=== PATIENT | male | born 1965 | race Caucasian/White ===

== ENCOUNTER 2020-02-02 06:06 | Emergency (ER) | payer OTHER ==
[~2020-02-02] VITALS: Ht 190.5 cm; Wt 99.8 kg
[2020-02-02 06:42] LABS: URINE BILIRUBIN NEGATIVE (Negative); URINE BLOOD 3+ (Negative); URINE CLARITY CLEAR; URINE COLOR YELLOW; URINE GLUCOSE-RANDOM NEGATIVE (Negative); URINE KETONES NEGATIVE (Negative); URINE LEUKOCYTES-REFLEX NEGATIVE (Negative); URINE NITRITE-REFLEX NEGATIVE (Negative); URINE PROTEIN 1+ (Negative); URINE SPECIFIC GRAVITY >= 1.030 (1.005-1.030); URINE UROBILINOGEN 0.2 E.U./dl (0.2-1.0)
[2020-02-02 06:52] LABS: AMORPHOUS URATES Many /LPF (None Seen); BACTERIA-REFLEX 1-9 Few /HPF (None Seen); CASTS None Seen /LPF (None Seen); MUCUS None Seen strn/LPF (None Seen); SQUAMOUS 0-3 Few /LPF (0-3); URINE RBC 3-10 Few /HPF (0-2); URINE WBC-REFLEX 0-5 Rare /HPF (0-5)
[2020-02-02 06:57] LABS: ABSOLUTE MONOCYTES 0.7 thou/uL (0.0-1.2); ABSOLUTE NEUTROPHILS 9.3 thou/uL (1.6-8.1); BASOPHILS 0.3 %; EOSINOPHILS 0.2 %; HEMATOCRIT 44.8 % (42.0-52.0); HEMOGLOBIN 15.3 gm/dL (14.0-18.0); LYMPHOCYTES 9.2 %; MCH 30.9 pg (26.0-34.0); MCHC 34.3 g/dL (28.0-37.0); MCV 90.1 fL (80.0-100.0); MONOCYTES 6.1 %; NUCLEATED RBCS 0 /100WBC; PLATELET COUNT* 241 thou/uL (150-400); POLYS 84.2 %; RBC 4.97 mil/uL (4.50-6.00); RDW-CV 13.8 % (10.5-14.5); WBC 11.1 thou/uL (4.0-11.0)
[2020-02-02 07:06] LABS: CALCIUM 9.2 mg/dL (8.5-10.1); CREATININE 1.7 mg/dL (0.6-1.3); POTASSIUM 3.7 mmol/L (3.5-5.1)
[2020-02-02 07:10] LABS: ALBUMIN 4.3 g/dL (3.4-5.0); TOTAL BILIRUBIN 0.5 mg/dL (<0.1-1.0); TOTAL PROTEIN 7.6 g/dL (6.4-8.2)
[2020-02-02] MEDS ORDERED: ZOFRAN ODT4 MG PO (09:57)
[2020-02-02] MEDS ORDERED: HYDROCODON-ACE1 EAC7 PO (09:57)
[2020-02-02] MEDS ORDERED: TORADOL 10 MG T10 MG PO (09:57)
[2020-02-02] MEDS ORDERED: FLOMAX0.4 MG PO (10:15)
[2020-02-02 10:16] VITALS: BP 133/88
--- NOTE | 2020-02-02 10:35 | EKG ---
[place] [address] ELECTROCARDIOGRAM REPORT Name: HALI RIVERA JR Room: [facility]#: [id number] Admission: 02/02/20 Attend Phys: Discharge: 02/02/20 Date of : 69 Date of Service: 02/02/20 0643 Report #: [id number] THIS REPORT FOR: //name// [facility] ED Test Date: 2020-02-02 Test Time: 06:43:29 Pat Name: HALI RIVERA Department: Room: Gender: [employer]: : 1965 Requested By: Naif Marin Order Number: [id number] MD: Rob Renee Measurements Intervals [place] Rate: 52 P: 15 WA: 180 QRS: 1 QRSD: 95 T: 12 QT: 469 QTc: 437 Interpretive Statements Sinus bradycardia RSR' in V1 or V2, probably normal variant Left ventricular hypertrophy Borderline T abnormalities, anterior leads No previous ECG available for comparison Electronically Signed On 02-02-2020 10:34:53 CDT by Rob Renee [email or web address] <ELECTRONICALLY SIGNED> By: Rob Renee MD, [facility] 02/02/20 1034 0643 0643 Rob Renee MD, [facility] /EPI
== END 2020-02-02 10:20 | disposition home or self-care (01) ==
LOC: M.ERS 06:06
PROVIDERS: Emergency Medicine Emergency Medical Services
DX: N20.0 Calculus of kidney (principal); N28.1 Cyst of kidney, acquired; N23 Unspecified renal colic; R11.2 Nausea with vomiting, unspecified